=== PATIENT | female | born 1985 | race Caucasian/White ===

== ENCOUNTER → 2017-06-22 14:42 | Outpatient (CLI) | payer OTHER, SELFPAY ==
[2017-06-22 19:15] LABS: Group B Strep DNA By PCR POSITIVE (Negative); Probe Check PASS
== END ==
PROVIDERS: Visit Provider Obstetrics & Gynecology
DX: Z36.85 Encounter for antenatal screening for Streptococcus B (principal)
CPT/HCPCS: 87653

== ENCOUNTER 2017-07-24 18:45 | Inpatient (IN) | payer OTHER, SELFPAY ==
[2017-07-24 19:36] VITALS: BMI 27.1
[2017-07-24 19:57] LABS: ROM Internal Control Test YES-OK TO RESULT pt. (Internal QC); ROM Patient Test POSITIVE (Negative)
[2017-07-24] MEDS: Lactated Ringers 1,000 ML 50 ML IV (20:10)
[2017-07-24 20:33] LABS: Hematocrit 39.3 % (37-47); Hemoglobin 13.5 g/dl (12.0-15.0); Mean Corp Hgb Conc 34.4 g/gl (32-36); Mean Corpuscular Hgb 31.4 pg (27.0-32.0); Mean Corpuscular Volume 91.4 fL (81-99); Mean Platelet Vol. 11.7 fl (6.2-12.0); Platelet Count 229 K/mm3 (150-450); RBC Distribution Width CV 12.2 % (11.6-14.6); RBC Distribution Width SD 40.5 fl (35.1-43.9); Scan Indicated on CBC? Y/N NO; White Blood Count 9.1 K/mm3 (4.4-11.0)
[2017-07-24] MEDS: Oxytocin 30 units/NS 500 ml 30 UNITS/500 ML IV.SOLN IV (20:46)
--- NOTE | 2017-07-25 00:06 | PCM.PN.BLA ---
Progress Note LABOR PROGRESS NOTE AVSS EFM 130-140s with avg variability. Accels to 150-160s Periods of inc variability. Category I tracing. Occasional variable to 110-12s UCs q 1-4 mins, most q 3 CX no recheck since admission 06/03 SROM: /-2 A/P: 40 4/5 wk SROM Pitocin induction after SROM. Continue Pitocin, watch progress, descent.
[2017-07-25] MEDS: Lactated Ringers 1,000 ML 50 ML IV ×4 (04:22→16:32)
[2017-07-25] MEDS: fentaNYL-bupivacaine (epidural) 100 ML BAG EPIDURAL ×4 (04:45→19:15)
[2017-07-25] MEDS: Ondansetron 4 MG/2 ML Vial IV (05:57)
--- NOTE | 2017-07-25 06:11 | PCM.PN.BLA ---
Progress Note LABOR PROGRESS NOTE EFM: 130-140 with avg variability . Accels noted. Overall category I. Some intermittent lates, resolved. UCs irregular q 1 - 3 1/2 min mostly, up to 7 min apart CX 380/-2 at 0257 A/P: 40 5/7 wk EGA SROM last night. Continue pitocin, watch continued progress and descent.
--- NOTE | 2017-07-25 09:09 | PCM.PN.BLA ---
Progress Note LABOR PROGRESS NOTE AVSS EFM 130-140s with avg variability Occasional late. Category I to II (d/t occ late) tracing. Category I overall UCs q 2-4 mins CX: /-2 at approx 730 am A/P: SROM at 40 5/7 wk . Pitocin induction to continue . Watch progress, descent.
[2017-07-25] MEDS: Amnioinfusion- 0.9% NS 1,000 ML IV.SOLN. 250 ML INTRA-UTER (10:00)
[2017-07-25] MEDS: Acetaminophen 325 MG Tablet PO (19:38)
[2017-07-25] MEDS: Oxytocin 30 units/NS 500 ml 30 UNITS/500 ML IV.SOLN 334 UNITS IV (22:35)
--- NOTE | 2017-07-25 22:57 | PCM.OB.VAG ---
Vaginal Delivery Maternal Presentation: Spontaneous Rupture of Membranes Amniotic Membrane Rupture Type: Spontaneous at home Amniotic Fluid Description: Clear Final LUCI: 07/20/17 Final LUCI Source: US <20 weeks Gestational age: 40 Weeks and 5 Days [place] doctor who attended delivery (if requested by OB): Gerald Baca [facility] [place] Date of Procedure: 07/25/17 Pre-Operative Diagnosis: IUP Post-Operative Diagnosis: IUP Surgery/ Procedure Performed: Vacuum Assisted Vaginal Delivery Anesthesiologist: Seng Kyle Type of Anesthesia: Epidural Description of Procedure: Spontaneous vaginal delivery of a viable male infant with Apgars of 8/9. Normal three-vessel placenta with light meconium staining. First-degree midline episiotomy extended to a third-degree midline laceration repaired in layers with 3-0 Vicryl suture and 3-0 Rapide suture. Kiwi vacuum used ?6 gentle pulls from low outlet to assist with delivery of the head due to increasing maternal fatigue after 2 hours of pushing and heart tones at 155-160 and maternal temperature up to 101F approximately 2 hours before delivery then in the 99's after Tylenol. Sponge counts okay. Banjo curette used after delivery of placenta to confirm no adherent tissue. Delivery physician: Monico Tay MD Presentation: Vertex Placental Delivery Description: Spontaneous Placenta Disposition: [facility] Cord Vessel Description: 3 Vessels Cord Gases drawn per routine: ABG Cord Entanglement: None Estimated Blood Loss: 250 cc A gender: Male (1 minute): 8 (5 minute): 9 Episiotomy Description: Midline, 1st degree Laceration: Midline, Perineal Extension/lac, 3rd degree Medications given after delivery: IV Pitocin Complications: None
--- NOTE | 2017-07-25 23:03 | OP.PCM_ITS ---
Vaginal Delivery Maternal Presentation: Spontaneous Rupture of Membranes Amniotic Membrane Rupture Type: Spontaneous at home Amniotic Fluid Description: Clear Final LUCI: 07/20/17 Final LUCI Source: US <20 weeks Gestational age: 40 Weeks and 5 Days [place] doctor who attended delivery (if requested by OB): Gerald Baca [facility] Date of Procedure: 07/25/17 Pre-Operative Diagnosis: IUP Post-Operative Diagnosis: IUP Surgery/ Procedure Performed: Vacuum Assisted Vaginal Delivery Anesthesiologist: Seng Kyle Type of Anesthesia: Epidural Description of Procedure: Spontaneous vaginal delivery of a viable male infant with Apgars of 8/9. Normal three-vessel placenta with light meconium staining. First-degree midline episiotomy extended to a third-degree midline laceration repaired in layers with 3-0 Vicryl suture and 3-0 Rapide suture. Kiwi vacuum used ?6 gentle pulls from low outlet to assist with delivery of the head due to increasing maternal fatigue after 2 hours of pushing and heart tones at 155-160 and maternal temperature up to 101F approximately 2 hours before delivery then in the 99's after Tylenol. Sponge counts okay. Banjo curette used after delivery of placenta to confirm no adherent tissue. Delivery physician: Monico Tay MD Presentation: Vertex Placental Delivery Description: Spontaneous Placenta Disposition: [facility] Cord Vessel Description: 3 Vessels Cord Gases drawn per routine: ABG Cord Entanglement: None Estimated Blood Loss: 250 cc A gender: Male (1 minute): 8 (5 minute): 9 Episiotomy Description: Midline, 1st degree Laceration: Midline, Perineal Extension/lac, 3rd degree Medications given after delivery: IV Pitocin Complications: None
--- NOTE | 2017-07-25 23:04 | PCM.DCVAG ---
Discharge Diet: No Restrictions Discharge Activity: May Shower, May Take a Tub Bath May resume sexual activity in: 4-6 weeks Additional Activity Instructions:: Nothing in the vagina for 4-6 weeks. You may return to work/school in 6 weeks. Call your doctor if you observe: Fever of 101 or Higher, Inability to urinate, Inability to have a bowel movement, Using more than one pad per hour Additional Instructions: If you experience any of the following, contact your healthcare provider. Bleeding that soaks a pad every hour for 2 hours Unrelieved incision or abdominal pain Swelling, redness, discharge or bleeding from your incision or episiotomy site Your incision begins to separate Problems urinating (including inability to urinate or burning while urinating). Visual changes Severe headache Flu-like symptoms Pain or redness in one of both of your breasts Pain, warmth, tenderness or swelling in your legs, especially the calf area Frequent nausea and vomiting Symptoms of depression or anxiety If you experience any of the following, call 911 or go to the nearest Emergency Room. Chest pain Problems breathing Seizure activity Partial or complete paralysis of a body part, slurred speech, weakness or drooping of the face, or a sudden inability to walk or hold your balance Allergies/Adverse Reactions: Allergies No Known Allergies Allergy (Verified 07/24/17 20:04) Medications to take at Discharge Docusate Sodium [Colace] 100 mg PO BID 07/24/17 Fexofenadine HCl [Jane Allergy] 60 mg PO DAILY 07/24/17 Fluticasone 0.05% [Flonase Nasal [place]] 1 spray NASAL DAILY 07/24/17 Pediatric Multivit Comb No.144 [Children's Chewable Vitamin] 2 each PO DAILY 07/24/17 Please Follow Up With: Tripp Ahn MD - [phone] When: Call to make an appointment with your doctor in 6 weeks. Primary Care Physician: Arsalan Ortega MD [Primary Care Provider] -
--- NOTE | 2017-07-25 23:05 | DCINST_ITS ---
Discharge Diet: No Restrictions Discharge Activity: May Shower, May Take a Tub Bath May resume sexual activity in: 4-6 weeks Additional Activity Instructions:: Nothing in the vagina for 4-6 weeks. You may return to work/school in 6 weeks. Call your doctor if you observe: Fever of 101 or Higher, Inability to urinate, Inability to have a bowel movement, Using more than one pad per hour Additional Instructions: If you experience any of the following, contact your healthcare provider. * Bleeding that soaks a pad every hour for 2 hours * Unrelieved incision or abdominal pain * Swelling, redness, discharge or bleeding from your incision or episiotomy site * Your incision begins to separate * Problems urinating (including inability to urinate or burning while urinating) . * Visual changes * Severe headache * Flu-like symptoms * Pain or redness in one of both of your breasts * Pain, warmth, tenderness or swelling in your legs, especially the calf area * Frequent nausea and vomiting * Symptoms of depression or anxiety If you experience any of the following, call 911 or go to the nearest Emergency Room. * Chest pain * Problems breathing * Seizure activity * Partial or complete paralysis of a body part, slurred speech, weakness or drooping of the face, or a sudden inability to walk or hold your balance Allergies/Adverse Reactions: Allergies No Known Allergies Allergy (Verified 07/24/17 20:04) Medications to take at Discharge Docusate Sodium [Colace] 100 mg PO BID 07/24/17 Fexofenadine HCl [Jane Allergy] 60 mg PO DAILY 07/24/17 Fluticasone 0.05% [Flonase Nasal [place]] 1 spray NASAL DAILY 07/24/17 Pediatric Multivit Comb No.144 [Children's Chewable Vitamin] 2 each PO DAILY Please Follow Up With: Tripp Ahn MD - [phone] When: Call to make an appointment with your doctor in 6 weeks. Primary Care Physician: Arsalan Ortega MD [Primary Care Provider] -
[2017-07-25] MEDS: Oxytocin 30 units/NS 500 ml 30 UNITS/500 ML IV.SOLN 167 UNITS IV (23:10)
[2017-07-26] VITALS (7 sets, daily range): BP systolic 107–138; BP diastolic 70–91; PULSE 58–87; RESP 16–18; TEMP 36.6–37
[2017-07-26] MEDS: Lactated Ringers 1,000 ML 15 ML IV (01:25)
[2017-07-26] MEDS: Ibuprofen 600 MG Tablet PO ×3 (05:37→20:11)
[2017-07-26 06:15] LABS: Hematocrit 34.4 % (37-47); Hemoglobin 11.8 g/dl (12.0-15.0); Mean Corp Hgb Conc 34.3 g/gl (32-36); Mean Corpuscular Hgb 31.8 pg (27.0-32.0); Mean Corpuscular Volume 92.7 fL (81-99); Mean Platelet Vol. 11.4 fl (6.2-12.0); Platelet Count 198 K/mm3 (150-450); RBC Distribution Width SD 39.7 fl (35.1-43.9); Red Blood Count 3.71 M/mm3 (4.2-5.4)
[2017-07-26 06:21] LABS: Scan Indicated on CBC? Y/N NO
--- NOTE | 2017-07-26 08:55 | PCM.PN.OB ---
Subjective: Patient without complaints. Breast-feeding going well. Vaginal bleeding has diminished. - Physical Exam Vital Signs AF, VSS Temp Pulse Resp BP 97.8 F 69 16 122/78 H 07/26/17 08:30 07/26/17 08:30 07/26/17 08:30 07/26/17 08:30 Oxygen Delivery Method Room Air Weight: 158 lb Body Mass Index (BMI) 27.1 Intake and Output for Last 24 Hours 07/24/17 07/25/17 07/26/17 23:59 23:59 23:59 Intake Total 6255 / 6255 Output Total 400 / 400 2100 / 2100 800 / 800 Balance -400 / -400 4155 / 4155 -800 / -800 Laboratory Tests Past 24 Hrs 07/26/17 06:00 WBC 18.0 H RBC 3.71 L Hgb 11.8 L Hct 34.4 L MCV 92.7 MCH 31.8 MCHC 34.3 RDW 12.0 RDW Differential 39.7 Plt Count 198 MPV 11.4 Fundus firm, minimal lochia. Hemoglobin okay. Medical Necessity - Tobacco Use Smoking Status: Never smoker Assessment/Plan Doing well. Continuing present care.
[2017-07-26] MEDS: Loratadine 10 MG Tablet 5 MG PO (10:23)
[2017-07-26] MEDS: Fluticasone 0.05% 1 SPRAY NASAL.SRY NASAL (10:25)
[2017-07-26] MEDS: oxyCODONE 5 MG Tablet PO ×2 (14:27→23:24)
[2017-07-26] MEDS: Docusate Sodium 100 MG Capsule PO ×2 (14:29→21:05)
[2017-07-27 03:00] VITALS: BP 125/75; PULSE 64; RESP 16; TEMP 36.4; O2SAT 97
[2017-07-27] MEDS: Ibuprofen 600 MG Tablet PO (03:51)
[2017-07-27 08:00] VITALS: BP 138/83; PULSE 97; RESP 18; TEMP 36.3; O2SAT 99
--- NOTE | 2017-07-27 09:10 | PCM.PN.OB ---
Subjective: Patient without complaints. Breast-feeding going well. Ready to go home today. - Physical Exam Vital Signs AF, VSS Temp Pulse Resp BP Pulse Ox 97.4 F L 97 18 138/83 H 99 07/27/17 08:00 07/27/17 08:00 07/27/17 08:00 07/27/17 08:00 07/27/17 08:00 Oxygen Delivery Method Room Air Weight: 158 lb Body Mass Index (BMI) 27.1 Intake and Output for Last 24 Hours 07/25/17 07/26/17 07/27/17 23:59 23:59 23:59 Intake Total 6255 / 6255 Output Total 2100 / 2100 800 / 800 Balance 4155 / 4155 -800 / -800 Medical Necessity - Tobacco Use Smoking Status: Never smoker Assessment/Plan Doing well. Will release to home with routine instructions.
--- NOTE | 2017-07-27 09:11 | PCM.DC.BLA ---
Discharge Summary Date of Admission: 07/24/17 Date of Discharge: 07/27/17 Summary: Admission diagnosis: Term intrauterine Discharge diagnosis: Term intrauterine Procedure: Spontaneous vaginal delivery HPI: Uneventful care. PE: Unremarkable. Hospital Course: The patient is a 31 year old G 1 p 0 who presented to [facility] at 40+ weeks gestation. She progressed slowly and delivered vaginally with a third-degree midline laceration. she did well demonstrating a stable HGB on PPD 1. It was felt she was ready for discharge on day #2. Homegoing Instruction: She was instructed not to drive for several days or if using narcotic pain medication, not to put anything in the vagina for 4 weeks, and to call the office for an appointment in 6 weeks. Discharge Medications: She was given a prescription for Oxycodone and also plans to use Aleve or Motrin or Tylenol at home as needed for pain and constipation.
[2017-07-27] MEDS: Fluticasone 0.05% 1 SPRAY NASAL.SRY NASAL (09:59)
[2017-07-27] MEDS: Docusate Sodium 100 MG Capsule PO (09:59)
[2017-07-27] MEDS: Loratadine 10 MG Tablet 5 MG PO (09:59)
[2017-07-27 12:41] VITALS: BP 136/88; PULSE 74; RESP 16; TEMP 36.2; O2SAT 97
== END 2017-07-27 13:20 | disposition home or self-care (01) | DRG 774 ==
PROVIDERS: Admitting Provider Obstetrics & Gynecology; Family Provider Family Medicine; PCP Family Medicine; Visit Provider Obstetrics & Gynecology
DX: O26.813 Pregnancy related exhaustion and fatigue, third trimester (principal); O98.82 Other maternal infectious and parasitic diseases complicating childbirth; O77.0 Labor and delivery complicated by meconium in amniotic fluid; O70.20 Third degree perineal laceration during delivery, unspecified; B95.1 Streptococcus, group B, as the cause of diseases classified elsewhere; Z3A.40 40 weeks gestation of pregnancy; Z37.0 Single live birth
CPT/HCPCS: 59025; 59050; 84112; 85027; 86850; 86900; 99218; J7030; J7120; G0378; J0290; J2405

== ENCOUNTER 2017-07-30 10:25 | Outpatient (CLI) | payer OTHER, SELFPAY | END 2017-07-30 11:30 | disposition home or self-care (01) | LOC: WPOUT 10:26 → WP 10:28 | PROVIDERS: Family Provider Family Medicine; PCP Family Medicine; Visit Provider Obstetrics & Gynecology | DX: Z39.1 Encounter for care and examination of lactating mother (principal) | CPT/HCPCS: 96152 ==

== ENCOUNTER 2017-08-02 09:50 | Outpatient (CLI) | payer OTHER, SELFPAY | END 2017-08-02 11:00 | disposition home or self-care (01) | LOC: WPOUT 10:05 → WP 10:07 | PROVIDERS: Family Provider Family Medicine; PCP Family Medicine; Visit Provider Obstetrics & Gynecology | DX: Z39.1 Encounter for care and examination of lactating mother (principal) ==

== ENCOUNTER 2017-08-05 12:45 | Outpatient (CLI) | payer OTHER, SELFPAY | END 2017-08-05 13:15 | disposition home or self-care (01) | LOC: OBS 12:48 → WP 12:48 | PROVIDERS: Family Provider Family Medicine; PCP Family Medicine; Visit Provider Obstetrics & Gynecology | DX: Z39.1 Encounter for care and examination of lactating mother (principal) | CPT/HCPCS: 96152 ==

== ENCOUNTER 2017-08-12 08:50 | Outpatient (CLI) | payer OTHER, SELFPAY | END 2017-08-12 09:20 | disposition home or self-care (01) | LOC: WPOUT 08:54 → WP 08:55 | PROVIDERS: Family Provider Family Medicine; PCP Family Medicine; Visit Provider Obstetrics & Gynecology | DX: O92.79 Other disorders of lactation (principal) | CPT/HCPCS: 96152 ==

== ENCOUNTER → 2017-09-08 09:22 | Outpatient (CLI) | payer OTHER, SELFPAY ==
[2017-09-08 10:59] LABS: Pregnancy, Serum, hCG Quali. NEGATIVE Negative (0-9 Nonpreg)
[2017-09-09 10:05] LABS: Progesterone Level 3.56 ng/mL (See Comment)
== END ==
PROVIDERS: Visit Provider Obstetrics & Gynecology
DX: Z30.014 Encounter for initial prescription of intrauterine contraceptive device (principal)
CPT/HCPCS: 36415; 84144; 84703

== ENCOUNTER → 2017-09-14 10:34 | Outpatient (CLI) | payer OTHER, SELFPAY ==
[2017-09-14 17:42] LABS: Chlamydia Trachomatis by PCR Negative (Negative); Neisserai gonorrhoeae by PCR Negative (Negative); Probe Check PASS; Sample Adequacy Control PASS; Specimen Processing Control PASS
== END ==
PROVIDERS: Visit Provider Obstetrics & Gynecology
DX: Z30.8 Encounter for other contraceptive management (principal)
CPT/HCPCS: 87491; 87591

== ENCOUNTER → 2017-12-08 19:38 | Outpatient (CLI) | payer OTHER, SELFPAY ==
[2017-12-15 10:56] LABS: HPV HC, High Risk Negative (Negative)
== END ==
PROVIDERS: Visit Provider Obstetrics & Gynecology
DX: Z12.4 Encounter for screening for malignant neoplasm of cervix (principal); Z12.72 Encounter for screening for malignant neoplasm of vagina
CPT/HCPCS: 87624; 88175; G0145

== ENCOUNTER → 2020-01-10 16:10 | Outpatient (CLI) | payer OTHER, SELFPAY ==
[2018-10-19 09:30] VITALS: BMI 24.9
[2020-01-16 19:15] LABS: HPV Reflexed? NOT INDICATED
== END ==
PROVIDERS: Visit Provider Obstetrics & Gynecology
DX: Z12.4 Encounter for screening for malignant neoplasm of cervix (principal)
CPT/HCPCS: 88175; G0145

== ENCOUNTER 2020-08-01 13:31 | Outpatient (RCR) | payer OTHER, SELFPAY ==
[2018-10-19 09:30] VITALS: BMI 24.9
== END 2020-10-07 23:59 ==
LOC: IMMUN 13:31
PROVIDERS: PCP Family Medicine; Visit Provider Family Medicine
DX: Z23 Encounter for immunization (principal)
CPT/HCPCS: 0001A; 0002A; 91300

== ENCOUNTER → 2021-10-15 | Outpatient (CLI) | payer OTHER, SELFPAY ==
--- NOTE | 2021-10-15 09:07 | RAD_ITS ---
STUDY: X-RAY - LEFT KNEE REASON FOR EXAM: Female, 35 years old. Continued pain following a fall. TECHNIQUE: 4 view(s) of the knee. COMPARISON: None. FINDINGS: Normal visualized distal femur. Normal visualized proximal tibia and fibula. Normal proximal tibiofibular articulation. Normal medial femorotibial compartment. Normal lateral femorotibial compartment. Normal patellofemoral articulation. Small joint effusion. RAD/Knee 4 or More Views IMPRESSION: Small joint effusion. Electronically Signed: Phil Tesfaye MD at 9:40 EDT ,
== END | disposition home or self-care (01) ==
PROVIDERS: PCP Family Medicine; Referring Provider Physician Assistant; Visit Provider Physician Assistant
DX: M25.562 Pain in left knee (principal)
CPT/HCPCS: 73564

== ENCOUNTER → 2021-11-05 | Outpatient (CLI) | payer OTHER, SELFPAY ==
--- NOTE | 2021-11-05 16:50 | MRI_ITS ---
STUDY: MR Knee W/O Contrast 11/05/2021 6:20 PM REASON FOR EXAM: Female, 35 years old. pain and swelling, medial knee pain TECHNIQUE: Standardized fat and water weighted pulse sequences were obtained in all 3 orthogonal planes. COMPARISON: None. FINDINGS: Vertical tear of the posterior horn of the medial meniscus. Normal hyaline cartilage of the medial femorotibial compartment. There is reactive marrow edema of the medial femoral condyle. Normal medial collateral ligamentous complex (MCL). Normal distal semimembranosus, gracilis and semitendinosus tendons. Normal lateral meniscus. Normal hyaline cartilage of the lateral femorotibial compartment. There is reactive marrow edema of the lateral femoral condyle. Normal proximal tibiofibular articulation. Normal lateral collateral (fibular) ligament. Normal popliteus tendon. Normal biceps femoris tendon. Complete tear of the anterior cruciate ligament (ACL). Normal posterior cruciate ligament (PCL). Normal congruent patellofemoral articulation. Normal hyaline cartilage of the patellofemoral compartment. Normal medial and lateral patellar retinaculum. Normal quadriceps tendon. Normal patellar tendon. Normal Hoffa''s fat pad. There is a small volume joint effusion. The soft tissues are unremarkable. The otherwise visualized osseous structures are unremarkable. MRI/Lower Ext Joint Only (Routine) IMPRESSION: Vertical tear of the posterior horn of the medial meniscus. There is a small volume joint effusion. Complete tear of the anterior cruciate ligament (ACL). There is reactive marrow edema of the medial femoral condyle. There is reactive marrow edema of the lateral femoral condyle. Electronically Signed: Fabricio Griffin MD at 18:22 EDT ,
== END | disposition home or self-care (01) ==
LOC: MRI 16:50
PROVIDERS: PCP Family Medicine; Visit Provider Physician Assistant
DX: S83.519A Sprain of anterior cruciate ligament of unspecified knee, initial encounter (principal); S83.249A Other tear of medial meniscus, current injury, unspecified knee, initial encounter; M23.92 Unspecified internal derangement of left knee; M25.462 Effusion, left knee
CPT/HCPCS: 73721

== ENCOUNTER 2022-01-06 05:54 | Day surgery (SDC) | payer OTHER, SELFPAY ==
[2022-01-06] VITALS (7 sets, daily range): BP systolic 117–135; BP diastolic 66–95; PULSE 75–105; RESP 16; TEMP 36.9–37.2; O2SAT 93–100; BMI 25.3
[2022-01-06 06:32] LABS: Internal QC Validated? YES +Cl - CLEAR BKGD; Pregnancy, Urine Negative Negative
[2022-01-06] MEDS: Lactated Ringers 1,000 ML 15 ML IV (06:38)
--- NOTE | 2022-01-06 07:16 | PCM.HP.STD ---
HPI - General HPI Narrative BETSEY PAUL, is a 36 F who presents for left knee ACLR and medial meniscus surgery. Anesthesia ordered COVID test (pending) but otherwise no changes to health or plan. No OCPs, non smoker, no history of VTE. Intake Visit Reasons:?left knee Chief Complaint: left knee injury Allergies No Known Allergies Allergy (Verified 10/19/18 09:22) Medications fluticasone propionate 50 mcg/actuation nasal spray,suspension 1 spray NASAL DAILY allergies 07/24/17 [History Confirmed 12/07/21] albuterol sulfate 90 mcg/actuation aerosol inhaler 1 puff inhalation Q6H PRN shortness of breath or wheezing #8.5 grams 10/19/18 [Rx Confirmed 12/07/21] fluticasone 100 mcg-salmeterol 50 mcg/dose blistr powdr for inhalation (Wixela Inhub) 1 inh inhalation 10/15/21 [History Confirmed 12/07/21] meloxicam 15 mg tablet 15 mg PO DAILY #30 tabs 10/15/21 [Rx Confirmed 12/07/21] montelukast 10 mg tablet 10 mg PO 10/15/21 [History Confirmed 12/07/21] sertraline 50 mg tablet 50 mg PO 10/15/21 [History Confirmed 12/07/21] PFSH Medical History?(Updated 11/09/21 @ 11:45 by DARVIN Patton) Allergic rhinitis Influenza A Surgical History?(Updated 10/15/21 @ 09:08 by Maria Esther Dalal) Hx of tonsillectomy Social History?(Updated 10/15/21 @ 09:09 by Maria Esther Dalal) Smoking Status:? Never smoker alcohol intake:? current alcohol intake frequency: a few times a month what type of physical activity do you participate in:? walking, running, bicycling and weight training frequency:? 1-2 times per week HPI left knee Details: Parts of this documentation were recorded by a scribe, this documentation accurately reflects the service provided and the decisions made by me, Dr. Charles Arteaga MD 12/07/21 0806. BETSEY PAUL is a 36 year old F here today for? F/U on left knee injury. She has already had an MRI of the knee which showed medial meniscus tear along with an ACL tear. She is here to further discuss surgery with the surgeon today. She does have a hinged knee brace that she has been wearing for stability. 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 She states that when she wears the knee brace her knee feel great but when she ambulates without the brace she has instability of the knee. She states that she feels the instability over the medial side of the knee. Fell 2 months ago, able to stand, Maybe fell 6 years ago. Feels loose, the brace keeps it great, wearing it all the time. Was not loose before 2 months ago. 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 Going down the stairs, planted and there was a pop, swelled a lot. No pain, but can tell somethings wrong. Discomfort. NO mechanical symptoms. HPI from prior visit with Patricio MEJIA) Left knee pain Details: Parts of this documentation were recorded by a scribe, this documentation accurately reflects the service provided and the decisions made by me, DARVIN Brown 10/15/21 0870. BETSEY PAUL is a 35 year old F NEW patient here today for? left knee pain. DOI was 4 weeks ago. She states that she was walking down her stairs and she fell down the last couple stairs. She states that she heard a pop when she fell and has had anterior medial knee pain since. She has also been having swelling since this injury. She does have limited flexion and extension today. Also reported an old injury a couple years ago where she twisted her knee and may have still had some instability from this injury that may have caused her fall. Denies any painful mechanical knee pain. She has had some tingling in the left leg which is rare. She states that she has been using a compression sleeve and icing in the evening and taking Advil without relief in the swelling. Denies any past surgery or injections of the left knee. Will have xrays of the knee today. Ortho Exam General General: Yes no acute distress and Yes well groomed Neurologic: Yes alert and Yes oriented x3 Psychologic: Yes reasonable and appropriate Left Knee Skin/Wound: Yes CDI, No ecchymosis, No erythema and No swelling Contralateral Normal: Yes Knee ROM: Yes ROM-Passive Extension -10 to 0 and Yes ROM-Passive Flexion 0-140 Examination: Yes med jt line tenderness, No Lat jt line tenderness, No TTP inf pole patella, No Crepitus, No Pain with flexion, Yes Padmini's Test, No Dial at 90, No Dial at 60, No TTP Patellar tendon and No TTP Tibial tubercle Quad Atrophy: No Stability: NML: Posterior Drawer, NML: Valgus 0, NML: Valgus 30, NML: Varus 0, NML: Varus 30, NML: Dial 90 and NML: Dial 30 and 2+: Anterior Drawer and 2+: Pattie (2+ pivot shift also) Apprehension with Lateral Translation: No Patellar Tilt Normal: Yes Patella Grind: No KNEE: low beightons score but knee hyper extends Supplemental Info 2 ? Diagnostics Subcategory All Activity ??:?? All Time ??:?? All Subcategories Filter Laboratory Imaging Microbiology Pathology Blood Bank Tests Cardiovascular Other Specialty DATE TYPE STATUS REF RANGE/AUTHOR Hx 11/05/21 16:50 Lower Extremity MRI Signed Fabricio Griffin 10/15/21 09:07 Knee X-Ray Signed Phil Tesfaye 04/27/15 00:22 Chest X-Ray Signed Avila Tinoco Andrea [address]ae [address] 36, F?1985MRN#? [id number] Booked PRE AMB,?BMS.YOVANY??? 5ft 4in ? Visit Date: 12/07/21 Allergies No Known Allergies Problems Complex tear of medial meniscus of left knee Rupture of anterior cruciate ligament of left knee Internal derangement of left knee Swelling of left knee joint Asthma Left knee pain Reactive airway disease Vital Signs No Data to Display Medications Prescription Monitoring Program Active albuterol sulfate 90 mcg/actuation 1 [id number] fluticasone propion-salmeterol 100-50 mcg/dose(Wixela Inhub) 1 inhinhalation fluticasone propionate 50 mcg/actuation 1 sprayNASALDAILY meloxicam 15 mgPODAILY meloxicam 15 mgPODAILY montelukast 10 mgPO sertraline 50 mgPO Diagnostics Reports BETSEY PAUL??36??F??1985 ? Allergy/Adv: No Known Allergies CloseLower Extremity MRI (Signed) Fabricio Griffin - 11/05/21 Knee X-Ray (Signed) Phil Tesfaye - 10/15/21 Chest X-Ray (Signed) Avila Tinoco - 04/27/15 Launch?Image [facility] Imaging Services [address] [place] [address] Knee 4 or More Views MR#:? [id number] Acct: [id number] Name:? BETSEY PAUL Rep #: [id number] :?? 1985 F 35 ? From:? ? Phil Tesfaye MD PCP: Dr. Arsalan Ortega MD ? Status: REG CLI Study: Knee 4 or More Views ? Date of Exam: 10/15/21 Exam# [id number] ? Ordering Dr:? Michael Davalos STUDY: ? X-RAY - LEFT KNEE REASON FOR EXAM: ? Female, 35 years old.? Continued pain following a fall. TECHNIQUE: ? 4 view(s) of the knee. COMPARISON: ? None. FINDINGS: Normal visualized distal femur.? Normal visualized proximal tibia and fibula.? Normal proximal tibiofibular articulation. Normal medial femorotibial compartment.? Normal lateral femorotibial compartment.? Normal patellofemoral articulation. Small joint effusion. RAD/Knee 4 or More Views IMPRESSION: Small joint effusion. ? Electronically Signed: Phil Tesfaye MD at 9:40 EDT , ADDENDUM by Dr. Fabricio Griffin MD on 11/06/21 at 1408 ADDENDUM ADDENDUM: Plain films available for review dated Oct 15 2021 9:12am.? There are no new or additional findings. Electronically Signed: Fabricio Griffin MD at 14:08 EDT , 11/06/21 1408 Date ? cc: ? DARVIN Davalos; Dr. Arsalan Ortega MD ~* Signed ADDENDUM by Dr. Fabricio Griffin MD on 11/06/21 at 1408 MRI/Lower Ext Joint Only (Routine) IMPRESSION: undefined 11/06/21 1415 Date ? cc: ? DARVIN Davalos; Dr. Arsalan Ortega MD ~* Signed STUDY:? MR Knee W/O Contrast? 11/05/2021 6:20 PM REASON FOR EXAM:? Female, 35 years old.? pain and swelling, medial knee pain TECHNIQUE:? Standardized fat and water weighted pulse sequences were obtained in all 3 orthogonal planes. COMPARISON:? None. FINDINGS: Vertical tear of the posterior horn of the medial meniscus.? Normal hyaline cartilage of the medial femorotibial compartment.? There is reactive marrow edema of the medial femoral condyle. Normal medial collateral ligamentous complex (MCL).? Normal distal semimembranosus, gracilis and semitendinosus tendons. Normal lateral meniscus.? Normal hyaline cartilage of the lateral femorotibial compartment.? There is reactive marrow edema of the lateral femoral condyle. Normal proximal tibiofibular articulation.? Normal lateral collateral (fibular) ligament.? Normal popliteus tendon.? Normal biceps femoris tendon. Complete tear of the anterior cruciate ligament (ACL).? Normal posterior cruciate ligament (PCL). Normal congruent patellofemoral articulation.? Normal hyaline cartilage of the patellofemoral compartment.? Normal medial and lateral patellar retinaculum. Normal quadriceps tendon.? Normal patellar tendon.? Normal Hoffa''s fat pad. There is a small? volume? joint effusion. The soft tissues are unremarkable.? The otherwise visualized osseous structures are unremarkable. MRI/Lower Ext Joint Only (Routine) IMPRESSION: Vertical tear of the posterior horn of the medial meniscus. ? There is a small? volume? joint effusion. ? Complete tear of the anterior cruciate ligament (ACL). ? There is reactive marrow edema of the medial femoral condyle. ? There is reactive marrow edema of the lateral femoral condyle. ? Electronically Signed: Fabricio Griffin MD at 18:22 EDT Reading Location ID and State: [facility] / [place] , Service support? , ? Coding Level of Care Code Off vis,new,level 3 Diagnoses Complex tear of medial meniscus of left knee? S83.232A Rupture of anterior cruciate ligament of left knee? S83.512A Assessment and Plan Assessment and Plan (1) Complex tear of medial meniscus of left knee: ?Status:?Acute (2) Rupture of anterior cruciate ligament of left knee: ?Status:?Acute ?Plan: 36-year-old active female with a complete ACL rupture and tear along the posterior horn medial meniscus.? We discussed the diagnosis prognosis and treatment options for this including nonoperative management physical therapy bracing rest activity modifications medications as well as surgery including arthroscopic partial medial meniscectomy versus repair as well as ACL reconstruction different graft choices including quadriceps tendon hamstrings and patellar tendon or allograft tissue.? She is quite active and does feel like her knee is undergone a significant change with looseness now over the last 2 months.? I do think given the bone bruising there on the MRI as well as the change in her knee and history that she has an acute ACL tear.? She is quite active and wishes to return to physically demanding activities I think her best chance of this would be quadriceps tendon autograft ACL reconstruction with partial medial meniscectomy versus repair.? She would like to go ahead with this and signed the consent form today.? We talked about the recovery after this 2 weeks on crutches for 6 weeks prior to return of normal gait as well as 9 to 12 months prior to returning to aggressive cutting or pivoting sports. Pros and cons risks and benefits were discussed with the patient including but not limited to infection, pain, stiffness, bleeding, damage to surrounding structures, neurovascular injury, recurrence or retear 5-7%, failure or wear of hardware or fixation, instability, fracture, deep vein thrombosis and pulmonary embolism, anesthetic risks, patient dissatisfaction, need for further surgery and other risks.? Patient understood and wished to proceed with surgery, and signed the informed consent documentation. [facility] Medical History (Updated 12/30/21 @ 13:34 by Araceli Bills) Allergic rhinitis Anxiety Asthma History of steroid therapy Influenza A Non-smoker Wears contact lenses Wears glasses Home Medications fluticasone propionate 50 mcg/actuation nasal spray,suspension 1 spray NASAL DAILY allergies 07/24/17 [History Last Taken 07/24/17 09:00] albuterol sulfate 90 mcg/actuation aerosol inhaler 1 puff inhalation Q6H PRN shortness of breath or wheezing #8.5 grams 10/19/18 [Rx Last Taken 01/06/22 05:15] fluticasone 100 mcg-salmeterol 50 mcg/dose blistr powdr for inhalation (Collette Medley) 1 inh inhalation DAILY 10/15/21 [History Last Taken Unknown] montelukast 10 mg tablet 10 mg PO DAILY 10/15/21 [History Last Taken Unknown] sertraline 50 mg tablet 50 mg PO DAILY 10/15/21 [History Last Taken Unknown] cetirizine 10 mg tablet (Zyrtec) 10 mg PO DAILY 12/30/21 [History Last Taken Unknown] Allergy/AdvReac Type Severity Reaction Status Date / Time No Known Allergies Allergy Verified 12/30/21 13:27 Surgical History (Updated 10/15/21 @ 09:08 by Maria Esther Dalal) Hx of tonsillectomy Social History (Updated 10/15/21 @ 09:09 by Maria Esther Dalal) Smoking Status: Never smoker alcohol intake: current alcohol intake frequency: a few times a month what type of physical activity do you participate in: walking, running, bicycling and weight training frequency: 1-2 times per week Vital Signs Vital Signs Vital Signs: 01/06/22 06:28 01/06/22 06:28 Temperature 98.9 F Temperature Source Temporal Pulse Rate 75 Respiratory Rate 16 Respiratory Pattern Normal Blood Pressure 125/78 H Blood Pressure Mean 93 Blood Pressure Source Monitor Blood Pressure Position Semi-Fowlers Blood Pressure Location Right Arm Pulse Ox 100 Oxygen Delivery Method Room Air Weight Weight: 147 lb 11.355 oz Body Mass Index (BMI) 25.3 Results Lab / Micro Data Labs: Laboratory Results - last 24 hr 01/06/22 06:15: Urine Test Negative
[2022-01-06] MEDS: Cefazolin 2 GM in 0.9% Normal Saline 100 ML IV (07:30)
--- NOTE | 2022-01-06 09:44 | PCM.OPRPT ---
Problems Associated Problem List Diagnoses (1) Rupture of anterior cruciate ligament of left knee: (2) Complex tear of medial meniscus of left knee: Report of Operation Date of Procedure: 01/06/22 Pre-Operative Diagnosis: Left knee ACL tear and medial meniscus tear Post-Operative Diagnosis: Same Surgery/Procedure Performed:: Left knee quadriceps autograft ACL reconstruction and partial medial meniscectomy Description of Surgical Findings:: Complete ACL tear and complex tear at the posterior horn medial meniscus Surgeon: Charles Arteaga Type of Anesthesia: Block,Regional and General Anesthesiologist: Wes Tay Estimated Blood Loss (mL): 30 Description of Procedure: The patient was brought to the operating room theater. They were placed supine on the operating room table. 2 g of IV Ancef was administered prior to the start of the procedure. General anesthesia was induced. All bony prominences appropriately padded. SCD on the nonoperative leg. Stress positioner used the patient's left side. Preoperative examination under anesthetic completed 2+ pivot shift 2+ Pattie 2+ anterior drawer. Medial and lateral collateral ligaments are stable as is the PCL. Full range of motion from 5 degrees hyperextension to 135 degrees of flexion. Left lower extremity prepped and draped in the usual sterile fashion with chlorhexidine swab allowing over 3 minutes drying time prior to draping. Preoperative timeout performed to confirm the site patient in the surgery. I began by elevating the limb and inflating the tourniquet to 250 mmHg. I made standard anterolateral and anteromedial arthroscopy portal incisions. I performed the diagnostic arthroscopy. Cartilage of the patellofemoral joint as well as medial and lateral tibiofemoral joints appeared normal no obvious cartilage lesions. Medial lateral gutters were normal no loose bodies. Medial meniscus had a tear of the posterior lateral aspect near the horn and the root appeared stable. I performed a partial medial meniscectomy for a flap tear/complex tear removing approximately 5% of the overall total volume of the meniscus. This appeared stable and solid to probing afterwards. Rest of the medial meniscus appeared normal. The ACL was completely torn. I debrided the stump on the femoral and tibial sides in preparation for the ACL reconstruction. Lateral compartment was entered. Lateral meniscus appeared normal and stable to probing. I then made a transverse incision centered at the quadriceps tendon insertion. I took a full-thickness graft 7 cm in length in the midportion of the quadriceps tendon ensuring to stay lateral to the vastus medialis muscle belly. I used the Arthrex quad pro harvester at a size 10 mm. I then closed the defect side to side with a number of figure of eight #1 Vicryl sutures. I then prepared the graft on both sides using the Arthrex fiber tag tight rope and ABS button loop suture system. Graft was placed on tension. Total length of the graft was 7 cm with 10 mm in diameter. I then placed a luggage tag stitch at the ABS button loop end. Graft was wrapped with normal saline while tunnel preparation was performed. On the femoral side I used retrograde drilling with a Arthrex flip cutter generation 3 at a size 10 mm. Total graft tunnel length was 4 cm so I retrograde drilled to 2.5 cm ensured that we had a good backwall and appropriately placed low and posterior on the medial wall of the femur. On the tibial side again I drilled retrograde 3 cm overall tunnel length was a little over 4 cm. I cleaned up the tunnel edges. I placed this tunnel in line with the anterior horn lateral meniscus just anterior to the PCL. I passed a fiber stick and tiger stick sutures through the femoral and tibial sides and brought them out anteromedially ensuring no suture bridges with the use of a passport cannula. I then passed the graft flipping the femoral button deliver the graft into the tunnel 2.5 cm on femoral side and 3cm on tibia end, and graft was appropriately tensioned. Graft endpoint was stable and solid graft tensioned at full extension. Full range of motion with no crepitus with range of motion testing. Tourniquet was let down bleeding hemostased. Wounds irrigated followed by closure of the subcutaneous tissue with 2-0 Vicryl sutures and skin with 3-0 Monocryl followed by Steri-Strips, Xeroform gauze abdominal pad dressings and Beto wrap. No brace was used as there was no meniscus repair in the patient plan for a abductor canal rather than a femoral nerve block. Patient was woken up from the general anesthetic transferred off the operating room table and taken to postanesthetic care unit in stable condition. All sponge needle instrument counts were correct no complications. Estimated blood loss 30 cc plan to the patient range of motion and weightbearing as tolerated typically on crutches for the first 2 weeks follow-up in clinic in 2 weeks time and to be discharged home when they are comfortable according to day surgery criteria. Grafts/Implants Used: Quadriceps tendon autograft Arthrex ACL all inside technique fiber tags Admit VTE Documentation VTE Present on Admission: No VTE Mechan Device Prophylaxis: SCD's VTE Pharm Prophylaxis ordered?: No Reason prophylaxis not ordered:: Treatment Not Indicated Procedures Musculoskeletal 20xxx-29xxx: Other Procedure See Report
--- NOTE | 2022-01-06 09:53 | DCINST_ITS ---
Discharge Instructions Procedure Narrative: Left knee ACL quadriceps tendon autograft reconstruction partial medial meniscectomy Diet Discharge Diet: No restrictions Activity Discharge Activity: Return to Normal Activity, May Not Shower and Use Crutches May resume sexual activity in: 6 weeks Weight Bearing Status: Weight bearing as tolerated Keep extremity elevated above heart level: Operative Extremity Dressing / Incision Call your doctor if your incision/area has: Continuous Slow Oozing, Sudden Increased Bleeding, Increased Pain/ Swelling, Increased Redness, Foul Smelling Discharge and Swelling at the incision site Call your doctor if you observe: Fever of 101 or Higher, Coldness, Increased Pain and Numbness or Tingling Change Dressing in: 3 days Cleanse incision/area with: Do not get Incision Wet Follow Up Care Please Follow Up With: Charles Arteaga MD When: 2 weeks Test Results: Test results from this visit will be discussed in further detail at your follow- up appointment, if applicable. Discharge Plan Admission Primary Reason for Your Visit: left knee ACLR and partial medial meniscectomy Attending Provider: Charles Arteaga Primary Care Provider: Care PhysicianKiesha Primary Instructions Patient Instructions: ACL Injury Surg Discharge Orders/Prescriptions Prescriptions: New oxycodone-acetaminophen [Percocet] 5-325 mg tablet 1 tab PO Q4H MDD 6 PRN (Reason: pain) 5 Days Qty: 20 0RF No Action albuterol sulfate 90 mcg/actuation HFA aerosol inhaler 1 puff INHALATION Q6H PRN (Reason: shortness of breath or wheezing) Qty: 8.5 0RF sertraline 50 mg tablet 50 mg PO DAILY montelukast 10 mg tablet 10 mg PO DAILY fluticasone propion-salmeterol [Wixela Inhub] 100-50 mcg/dose blister with device 1 inh inhalation DAILY fluticasone propionate 1 SPRAY spray,suspension 1 spray NASAL DAILY cetirizine [Zyrtec] 10 mg Tablet 10 mg PO DAILY Referrals / Follow Up: Care PhysicianKiesha Primary [Primary Care Provider] - Disposition Disposition (needs filled in before D/C Order can be placed): Home, Self Care
== END 2022-01-06 11:53 | disposition home or self-care (01) ==
LOC: SDC 05:55 → AC 05:56
PROVIDERS: Anesthesiology; Referring Provider Orthopaedic Surgery Sports Medicine; Visit Provider Orthopaedic Surgery Sports Medicine
PROC: (CPT 29881; principal; 2022-01-06 07:10)
DX: S83.519A Sprain of anterior cruciate ligament of unspecified knee, initial encounter (principal); S83.249A Other tear of medial meniscus, current injury, unspecified knee, initial encounter; M25.40 Effusion, unspecified joint
CPT/HCPCS: 29881; 29888; 01400; 81025; 87426; C1713; J7120; J2405

== ENCOUNTER 2022-06-21 08:00 | Outpatient (RCR) | payer OTHER, SELFPAY ==
--- NOTE | 2022-01-15 07:58 | HP.PTEVAL ---
Patient's Visit Information BETSEY PAUL is a 36 year old F referred to Physical Therapy by DARVIN Brown with a diagnosis of ACL Repair. Date of Evaluation: 01/14/22 Physical Therapist: Yvrose Davenport DPT - Visit Plan Frequency: 3x /Week Duration: 6 Weeks Plan: 01/06/22 ACL protocol- WBAT - Subjective Fell down the stairs and tore ACL- Left ACL reconstruction was 01/06/2022- went home straight home after surgery. Currently sleeping in the living room- but has handrail on stairs- and would like to get back up there. She has discomfort in the knee- has not taken pain meds in a few days. Worst: 3/10 Agg: when she gets up and moving around- standing in the kitchen. Eases: sitting, elevation and ice- has an ice machine Best: 0/10 most of the time. Pain is located right in the knee cap. No radiating pain- describes the pain as dull and achy. No N/T. 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 PMHx/Meds no changes since surgery. WBAT- ACL only no meniscal repair. Sleep: tossing and turning hard to get comfortable- side sleeper. - Objective Posture: fair throughout. Gait: antalgic- FWW- step to gait pattern with very little weight bearing- poor heel/toe and decreased knee extension- single axillary crutch much improved- step through gait pattern increased weight bearing. HR/TR: able. SLS: weight shift. Observation: steri strips intact- no s/s of infection. Girth: Patella: 37 cm 6 above:52 cm. ROM: 15-60. Strength: Ankle: 5/5, Knee: quad set not visible, Hip: requires min A for SLR, Core: fair plus - Balance/Special Test Scores Lower Extremity Functional Score: 24 - Goals Goal 1:: Patient will be I with HEP and progression Goal Time Frame: 4-6 Weeks Goal 2:: Patient will ambulate > 300 feet with a normalized gait pattern Goal Time Frame: 4-6 Weeks Goal 3:: Patient will asc/desc 8 stairs recip Goal Time Frame: 4-6 Weeks Goal 4:: Patient will show equal quad girth Goal Time Frame: 4-6 Weeks - Rehabilitation Potential Physical Therapy Diagnosis: Patient presents s/p ACL repair- she has decreased LE ROM, core and LE strength/stabilization, flex and muscular endurance s/p ACL repair. Rehabilitation Potential: Good - Anticipated Interventions Patient/Client Instruction: Educate patient on: Benefits of Fitness Program Therapeutic Exercise to Include: Strength training, Endurance training, Balance training, Coordination, Agility training, Body mechanics, Postural training, Flexibilty training, Gait and locomotor training, Neuromotor development, Passive ROM, Active ROM, Dynamic Lumbar Stabilization For the Purpose of:: To improve ability to perform ADL's TENS: Yes Cryotherapy (ice pack, ice massage): Yes Thermo therapy (hot pack): Yes Thank you for the opportunity to evaluate your patient. For Medicare and Medicare HMO plans, please review the plan of care and approve it. It will need to be FAXED BACK to us at [phone] for Medicare purposes. For Medicare only, by signing this I certify the plan of care. Please let me know if there are questions or concerns regarding this plan of care. Physician Signature: Date:
--- NOTE | 2022-03-26 08:00 | HP.PTREVAL ---
DARVIN Brown, It has been my pleasure to treat BETSEY PAUL over the last 24 visits for ACL Repair. Please see the progress note below for an update on the physical therapy plan of care! Subjective: Pt. reports overall doing well. Pt. reports overall no issues, just a little stiff. Objective/Function: ROM: 0-2-118deg active, PROM: 0-0-124deg. MMT: RLE: knee: ext 49..5#, flexion 31.5#,hip: flexion 24.3#, abd 25.3, ext 67.5#. LLE: knee: ext 35.4, flexion 33.1#. hip: flexion 35.4#, abd 25.1#, ext 671.#. edema: mid patella: R 34.5cm, L 35cm. quad girth: RLE: 4in above mid patella: 46cm, 6in 51cm, LLE; 4in 44cm, 6in: 49cm. light jogging did okay, very light. good squat mechanics noted. stairs normal without issues. SLS, good slight valgus at times, but overall good. Plan Plan: Cont. to work on equaling quad girth and quad/HS strength. Balance/Gait/Functional tests - Balance/Special Test Scores Lower Extremity Functional Score: 42 Goals Goal 1:: Patient will be I with HEP and progression Goal Time Frame: 4-6 Weeks Goal Progress: Progressing Goal 2:: Patient will ambulate > 300 feet with a normalized gait pattern Goal Time Frame: 4-6 Weeks Goal Progress: Goal Met Goal 3:: Patient will asc/desc 8 stairs recip Goal Time Frame: 4-6 Weeks Goal Progress: Goal Met Goal 4:: Patient will show equal quad girth Goal Time Frame: 4-6 Weeks Goal Progress: Progressing Goal 5:: LTG: Pt. to have at least 90% strength R to L of quad and Hamstrings Goal Time Frame: 2-4 Weeks Goal 6:: LTG: Pt. to be able to jog with good mechanics without increase in symptoms. Goal Time Frame: 4-6 Weeks Anticipated Interventions Patient/Client Instruction: Educate patient on: Benefits of Fitness Program Therapeutic Exercise to Include: Strength training, Endurance training, Balance training, Coordination, Agility training, Body mechanics, Postural training, Flexibilty training, Gait and locomotor training, Neuromotor development, Passive ROM, Active ROM, Dynamic Lumbar Stabilization For the Purpose of:: To improve ability to perform ADL's TENS: Yes Cryotherapy (ice pack, ice massage): Yes Thermo therapy (hot pack): Yes Please do not hesitate to contact me at [phone] by phone or if you have questions or concerns regarding this new plan of care! Sincerely, DESTINEY HandT
--- NOTE | 2022-05-06 08:00 | HP.PTREVAL ---
DARVIN Brown, It has been my pleasure to treat MINH CARMONAEK over the last 32 visits for ACL Repair. Please see the progress note below for an update on the physical therapy plan of care! Subjective: Pt. reports no pain and no issues currently. She had been able to work out well without increase in symptoms. Pt. is working without issues. She does want to get back to light running and would like to get back doing some HIT classes. Objective/Function: RLE: knee ext 44.5#, flexion 37.5#; hip: flexion 60.1#, abd 56.4#. LLE: knee ext 42.7#, flexion 39.1; hip: flexion 61.7#, abd 53.9#. ROM: L knee: 0-0-131deg. R knee: 0-0-139deg. Pt. has good HS length and good hip ROM. squat: Pt. has slight L wt. shift with depth squat, no pain. STAR excursion, with in 90% for all directional except retro/across was only 75%. She is able to broad jump 18 inches, but has increased wt. shift to L side. Running on Tmill: Pt. is able to run for 3 min. without increase in symptoms. Fairly normal motion noted, minimal knee valgus noted, reduced stride length noted, but tentative mobility noted. Plan Plan: I want minh to start doing more jogging, straight plane. I want her to do more agility exercises, with good knee stability. Next visit complete a functional movement screen, add in video analysis as needed. Progress per results. Balance/Gait/Functional tests - Balance/Special Test Scores Lower Extremity Functional Score: 69 Goals Goal 1:: Patient will be I with HEP and progression Goal Time Frame: 4-6 Weeks Goal Progress: Progressing Goal 2:: Patient will ambulate > 300 feet with a normalized gait pattern Goal Time Frame: 4-6 Weeks Goal Progress: Goal Met Goal 3:: Pt. to be able to run with good mechanics without increase in symptoms of her knee. Goal Time Frame: 4-6 Weeks Goal Progress: Progressing Goal 4:: Pt. to have functional movement screen completed. Goal Time Frame: 4-6 Weeks Goal Progress: Progressing Goal 5:: LTG: Pt. to have at least 90% strength R to L of quad and Hamstrings Goal Time Frame: 2-4 Weeks Goal Progress: Goal Met Goal 6:: LTG: Pt. to be able to jog with good mechanics without increase in symptoms. Goal Time Frame: 4-6 Weeks Goal Progress: Progressing Anticipated Interventions Patient/Client Instruction: Educate patient on: Benefits of Fitness Program Therapeutic Exercise to Include: Strength training, Endurance training, Balance training, Coordination, Agility training, Body mechanics, Postural training, Flexibilty training, Gait and locomotor training, Neuromotor development, Passive ROM, Active ROM, Dynamic Lumbar Stabilization For the Purpose of:: To improve ability to perform ADL's TENS: Yes Cryotherapy (ice pack, ice massage): Yes Thermo therapy (hot pack): Yes Please do not hesitate to contact me at [phone] by phone or if you have questions or concerns regarding this new plan of care! Sincerely, Reid Lisa DPT
== END 2022-06-21 19:00 | disposition home or self-care (01) ==
LOC: PT 08:00
PROVIDERS: PCP Family Medicine; Referring Provider Physician Assistant; Visit Provider Physician Assistant
DX: S83.512D Sprain of anterior cruciate ligament of left knee, subsequent encounter (principal); S83.232D Complex tear of medial meniscus, current injury, left knee, subsequent encounter; X58.XXXD Exposure to other specified factors, subsequent encounter
CPT/HCPCS: 97016; 97110; 97140; 97162; 97164; 97530

== ENCOUNTER → 2023-05-23 | Outpatient (CLI) | payer OTHER, SELFPAY ==
--- OUTSIDE RECORDS SUMMARY | 2023-05-23 17:18 | XMS RPT_ITS | CCD ---
Author Name Unknown Address [address] [place] [address] Organization [facility] Care Team Providers Care Electrician Maintenance Name Role Phone Kayla Hair DC Unavailable DR RON ANDERS DO Primary Care Physician [phone] DR RON ANDERS DO Attending Unavailable DR RON ANDERS DO Primary Care Unavailable DR RON ANDERS DO Attending Unavailable CHAGO KUMAR, DR VELASQUEZ Primary Care Unavailable Medications Current Medications Medication Drug Class(es) Dates Sig (Normalized) Sig (Original) cetirizine hydrochloride 10 mg oral tablet (2 sources) Histamine-1 Receptor Antagonist Start: 02-09-2022 Zyrtec 10 mg oral tablet Dose : 10 mg = 1 tab(s), Oral, qDay, # 30 tab(s), 0 Refill(s) Start Date: 02/09/22 Status: Ordered DME MISCellaneous (2 sources) Start: 02-09-2022 DME MISCellaneous See Instructions, Spacer chamber, Dx: J45.909, # 1 EA, 0 Refill(s), Pharmacy: [facility], 162, cm, 02/09/22 16:15:00 EDT, Height, 68.3 Start Date: 02/09/22 Status: Ordered fluticasone propionate 0.05 mg/actuat metered dose nasal spray (2 sources) Corticosteroid Start: 11-27-2018 take 1 dose nasal route once daily in the morning Flonase 50 mcg/inh nasal spray Dose = 1 spray(s), Nostril, each, qAM, 0 Refill(s) Start Date: 11/27/18 Status: Ordered levonorgestrel 0.697064 mg/hr intrauterine system (2 sources) Progestin, Progestin-containing Intrauterine Device Start: 02-09-2022 Mirena 52 mg intrauterine device Dose : 52 mg = 1 EA, Intrauterine, Once, 0 Refill(s) Start Date: 02/09/22 Status: Ordered LORazepam 0.5 mg oral tablet (1 source) Benzodiazepine Start: 04-30-2022 End: 05-05-2022 LORazepam 0.5 mg oral tablet Dose : 0.5 mg = 1 tab(s), Oral, QID, PRN as needed for anxiety, Do not drive, operate heavy machinery, or drink alcohol while on this med. Do not take any other sedating medications while on this med., X 5 day(s), # 20 tab(s), 0 Refill(s), 05/05/22 8... Start Date: 04/30/22 Stop Date: 05/05/22 Status: Ordered montelukast 10 mg oral tablet (2 sources) Leukotriene Receptor Antagonist Start: 08-16-2022 Singulair 10 mg oral tablet Dose : 10 mg = 1 tab(s), Oral, qDay, # 90 tab(s), 1 Refill(s), Pharmacy: [facility], Asthma in adult, 162, cm, 06/03/22 8:01:00 EST, Height, kg, 06/03/22 8:01:00 EST, Dosing Weight Start Date: 08/16/22 Status: Ordered Completed/Discontinued Medications Medication Drug Class(es) Dates Sig (Normalized) Sig (Original) [id number] 200 actuat albuterol 0.09 mg/actuat metered dose inhaler (2 sources) beta2-Adrenergic Agonist Start: 08-16-2022 End: 02-12-2023 take 2 puff(s) by inhalation every four hours as needed for wheezing ProAir HFA MDI (90 mcg/inh) inhalation aerosol 2 puff(s), Inhalation, q4h, PRN Shortness of breath or wheezing, use with spacer chamber, # 1 EA, 5 Refill(s), Pharmacy: [facility], 162, cm, 06/03/22 8:01:00 EST, Height, kg, 02/02/23 8:01:00 EST, Dosing Weight Start Date: 08/16/22 Stop Date: 02/12/23 Status: Ordered Problems Active Problems Problem Classification Problem Date Documented Da te Episodic/Chronic Anxiety disorders (3 sources) Anxiety 11-27-2018 Chronic Asthma (2 sources) Asthma 06-11-2019 Chronic Cardiac dysrhythmias (1 source) 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 Conduction disorders (1 source) Incomplete right bundle branch block 06-03-2022 Chronic Disorders of lipid metabolism (2 sources) Mixed hyperlipidemia; Translations: [Mixed hyperlipidemia] Onset: 02-25-2023 Chronic Residual codes; unclassified (2 sources) Insomnia 11-27-2018 Episodic Past or Other Problems Problem Classification Problem Date Documented Da te Episodic/Chronic Other bone disease and musculoskeletal deformities (4 sources) Pelvic somatic dysfunction; Translations: [Segmental and somatic dysfunction] Onset: 07-19-2016 07-19-2016 Episodic Other bone disease and musculoskeletal deformities (2 sources) Segmental and somatic dysfunction; Translations: [Segmental and somatic dysfunction of lumbar region] Onset: 07-19-2016 07-19-2016 Episodic Results Test Name Value Interpretation Reference Range Facil ity Vital Signs Date Time Vital Sign Value Performing Clinician Facility 07-19-2016 09:08-0400 BMI (Body Mass Index) 24.03 kg/m2 Kayla Hair [employer] [facility] Work Phone: 07-19-2016 09:08-0400 BP Diastolic 41 mm[Hg] Kayla Rafjose manuel JIMENEZ [facility] Work Phone: 07-19-2016 09:08-0400 BP Systolic 124 mm[Hg] Kayla Hair [employer] [facility] Work Phone: 07-19-2016 09:08-0400 Height 162.56 cm Kayla IG Guitarsjose manuel [employer] [facility] Work Phone: 07-19-2016 09:08-0400 Weight 63.5 kg Kayla Rafjose manuel [employer] [facility] Work Phone: Encounters Encounter Date Encounter Type Care Provider Facility Start: 02-25-2023 End: 02-26-[address] RON ANDERS DO Facility:[facility] Start: 02-25-2023 End: 02-25-[address] RON ANDERS DO [facility] Start: 05-04-2022 End: 05-05-[address] RON ANDERS DO Facility:[facility] Start: 05-04-2022 End: 05-04-[address] RON ANDERS DO [facility] Procedures Date Procedure Procedure Detail Performing Clinician Start: 08-30-2016 End: 08-30-2016 Chiropractic manipulation Kayla B Dossi DC Work Phone: Start: 08-30-2016 End: 08-30-2016 Electric stimulation therapy Kayla B Dossi DC Work Phone: Start: 08-30-2016 End: 08-30-2016 Mechanical traction therapy Kayla B Dossi DC Work Phone: Start: 08-10-2016 End: 08-10-2016 Chiropractic manipulation Kayla B Dossi DC Work Phone: Start: 08-10-2016 End: 08-10-2016 Electric stimulation therapy Kayla B Dossi DC Work Phone: Start: 08-10-2016 End: 08-10-2016 Mechanical traction therapy Kayla B Dossi DC Work Phone: Start: 08-02-2016 End: 08-02-2016 Chiropractic manipulation Kayla B Dossi DC Work Phone: Start: 08-02-2016 End: 08-02-2016 Electric stimulation therapy Kayla B Dossi DC Work Phone: Start: 08-02-2016 End: 08-02-2016 Mechanical traction therapy Kayla B Dossi DC Work Phone: Start: 07-29-2016 End: 07-29-2016 Chiropractic manipulation Kayla B Dossi DC Work Phone: Start: 07-29-2016 End: 07-29-2016 Electric stimulation therapy Kayla B Dossi DC Work Phone: Start: 07-29-2016 End: 07-29-2016 Mechanical traction therapy Kayla Pedroza Dossi DC Work Phone: Start: 07-26-2016 End: 07-26-2016 Chiropractic manipulation Kayla Pedroza Dossi DC Work Phone: Start: 07-26-2016 End: 07-26-2016 Electric stimulation therapy Kayla Pedroza Dossi DC Work Phone: Start: 07-26-2016 End: 07-26-2016 Mechanical traction therapy Kayla Pedroza Dossi DC Work Phone: Start: 07-22-2016 End: 07-22-2016 Chiropractic manipulation Kayla Pedroza Dossi DC Work Phone: Start: 07-22-2016 End: 07-22-2016 Electric stimulation therapy Kayla Pedroza Dossi DC Work Phone: Start: 07-22-2016 End: 07-22-2016 Mechanical traction therapy Kayla Pedroza Dossi DC Work Phone: Start: 07-19-2016 End: 07-19-2016 Chiropractic manipulation Kayla Pedroza Dossi DC Work Phone: Start: 07-19-2016 End: 07-19-2016 Electric stimulation therapy Kayla Pedroza Dossi DC Work Phone: Start: 07-19-2016 End: 07-19-2016 Mechanical traction therapy Kayla Pedroza Dossi DC Work Phone: Plan of Treatment Date Care Activity Detail Author Start: 08-30-2016 End: 08-30-2016 Appointment Appointment [facility] Work Phone: Start: 08-10-2016 End: 08-10-2016 Follow up Appt 2x/Month Follow up Appt 2x/Month [facility] Work Phone: Start: 08-02-2016 End: 08-02-2016 Follow up Appt 1x/week Follow up Appt 1x/week [facility] Work Phone: Start: 07-29-2016 End: 07-29-2016 Follow up Appt 2x/week Follow up Appt 2x/week [facility] Work Phone: Start: 07-26-2016 End: 07-26-2016 Follow up Appt 2x/week Follow up Appt 2x/week [facility] Work Phone: Start: 07-22-2016 End: 07-22-2016 Follow up Appt 2x/week Follow up Appt 2x/week [facility] Work Phone: Start: 07-19-2016 End: 07-19-2016 Follow up Appt 2x/week Follow up Appt 2x/week [facility] Work Phone: Immunizations Immunization Date Immunization Notes Care Provider Fa [facility] 02-09-2022 COVID-19, mRNA, LNP- S, bivalent booster, PF, 30 mcg/0.3 mL dose; Translations: [[facility] COVID-19 (12y+) Bivalent Booster Vaccine PF] DR RON ANDERS DO [facility] 02-09-2022 influenza, injectabl e, quadrivalent, contains preservative; Translations: [Fluarix PF Quadrivalent ] DR RON ANDERS DO [facility] 03-05-2021 SARS-CoV-2 mRNA (tozinameran) vaccine DR RON ANDERS DO [facility] Payers Date Payer Category Payer Unknown [id number] 1985 Unknown [id number] 1985 Unknown [id number] Social History Date Type Detail Facility Start: 02-19-2019 Tobacco smoking status Never s moked tobacco (finding) [facility] Evaluation + Plan note Note Date & Type Note Facility Evaluation + Plan note Future Appointments Appointment Date:06/03/2022 08:00:00 AM Scheduled Provider:RON ANDERS DO Location:[facility] Appointment Type:PC OV Appointment Date:08/05/2022 09:30:00 AM Scheduled Provider:RON ANDERS DO Location:[facility] Appointment Type:PC OV [facility] Evaluation + Plan note Note Date & Type Note Facility Evaluation + Plan note Future Appointments Appointment Date:03/03/2023 08:00:00 AM Scheduled Provider:RON ANDERS DO Location:[facility] Appointment Type:PC Wellness Annual [facility] Hospital course Narrative Note Date & Type Note Facility Hospital course Narrative No data available for this section [facility] Hospital Discharge instructions Note Date & Type Note Facility Hospital Discharge instructions No data available for this section [facility] Progress note Note Date & Type Note Facility Progress note No data available for this section [facility] Summary Purpose Family History No Family History Records Found Advance Directives No Advanced Directives Records Found Additional Source Comments Care Team (unrecognized sect ion and content) Care Team Personnel Name: RON ANDERS DO Position: P4 Physician - Primary Care Member Role: Primary Care Physician Address: Address: [address] [place] [address] Care Team Related Persons Name: NINA PAUL Address: Home [address] [place] [phone] Patient Care team informatio n (unrecognized section and content) Care Team Personnel Name: RON ANDERS DO Position: P4 Physician - Primary Care Member Role: Primary Care Physician Address: Address: [address] [place] [address] Care Team Related Persons Name: NINA PAUL Address: Home [address] [place] [phone] INFORMATION SOURCE (unrecogn ized section and content) FOR RECORDS PERTAINING TO PATIENTS WHO ARE OR HAVE BEEN ENROLLED IN A CHEMICAL DEPENDENCY/SUBSTANCEABUSE PROGRAM, SOME INFORMATION MAY BE OMITTED. This clinical summary was aggregated from multiple sources. Caution should be exercised in using it in the provision of clinical care. This summary normalizes information from multiple sources, and as a consequence, information in this document may materially change the coding, format and clinical context of patient data. In addition, data may be omitted in some cases. CLINICAL DECISIONS SHOULD BE BASED ON THE PRIMARY CLINICAL RECORDS. [facility] [employer]. provides no warranty or guarantee of the accuracy or completeness of information in this document.
[2023-05-26 14:09] LABS: HPV APTIMA, High Risk Negative (Negative)
== END | disposition home or self-care (01) ==
LOC: LABSPEC 16:59
PROVIDERS: PCP Student in an Organized Health Care Education/Training Program; Referring Provider Nurse Practitioner Women's Health; Visit Provider Nurse Practitioner Women's Health
DX: Z12.4 Encounter for screening for malignant neoplasm of cervix (principal)
CPT/HCPCS: 87624; 88175; G0145

== ENCOUNTER → 2024-08-16 | Outpatient (CLI) | payer OTHER, SELFPAY ==
[2024-08-16 11:04] LABS: Vitamin D,25 Hydroxy 20.3 ng/mL (30-100)
== END | disposition home or self-care (01) ==
LOC: MTLAB 08:40
PROVIDERS: PCP Student in an Organized Health Care Education/Training Program; Referring Provider Internal Medicine Endocrinology, Diabetes & Metabolism; Visit Provider Internal Medicine Endocrinology, Diabetes & Metabolism
DX: E03.9 Hypothyroidism, unspecified (principal); E06.3 Autoimmune thyroiditis
CPT/HCPCS: 36415; 82306; 84439; 84443